=== PATIENT | male | born 1965 | race Caucasian/White ===

== ENCOUNTER 2022-12-11 07:25 | Day surgery (SDC) | payer OTHER ==
[2022-12-05 15:03] VITALS: BMI 28.1
[2022-12-11] MEDS ORDERED: LIDOCAINE HCL/PF 2% SDV 5ML VIAL ONE (07:46)
[2022-12-11] MEDS ORDERED: PROPOFOL 160 ML ONE (07:47)
[2022-12-11 08:53] VITALS: PULSE 65; RESP 18; TEMP 97.1
[2022-12-11 09:25] VITALS: BP 104/70
== END 2022-12-11 09:25 | disposition home or self-care (01) ==
LOC: FASU-ENDO 07:25
PROVIDERS: ATTEND Internal Medicine Gastroenterology
PROC: 0DJD8ZZ Inspection of Lower Intestinal Tract, Via Natural or Artificial Opening Endoscopic (ICD-10-PCS; principal; 2022-12-11 08:22)
DX: Z12.11 Encounter for screening for malignant neoplasm of colon (principal); Z86.010 Personal history of colon polyps; K57.30 Diverticulosis of large intestine without perforation or abscess without bleeding